=== PATIENT | male | born 1970 | race Caucasian/White ===

== ENCOUNTER 2018-09-22 14:29 | Emergency (ER) | payer BC ==
--- OUTSIDE RECORDS SUMMARY | 2018-09-22 14:43 | XMS REPORT | Continuity of Care Document ---
:1970 External Reference #:[id number] Author Name Bria Valles Care Team Providers Name Role Phone Gato Paulino NP Primary Care Physician Unavailable Payers Date Identification Numbers Payment Provider Subscriber Policy Number: [id number] BS Corbin Jose Marquez PayID: [id number] [address] [address] [place] [address] Advance Directives Description No Information Available Problems Description No Information Family History Date Family Member(s) Observation Comments Father Coronary Artery Disease (CAD) Father [place] x6 Mother Heart Murmur Siblings 3 2 brothers, healthy 1 brother, at 8 yrs-leukemia Social History Type Date Description Comments Sex Unknown Marital Status Lives With Lives With Family Occupation Manager Of Compliance Tobacco Use Start: Unknown End: Former Cigarette Smoker Unknown Cigarette Use Pack Years - 20 Smoking Status Reviewed: 08/24/18 Former Cigarette Smoker ETOH Use Denies alcohol use Tobacco Use Start: Unknown End: Patient is a former Quit 05/2015. Unknown smoker Smoked 1/2 ppd for 20 years Recreational Drug Use Denies Drug Use Exercise Type/Frequency Exercises regularly Allergies, Adverse Reactions, Alerts Date Description Reaction Status Severity Comments 08/19/2015 NKDA Active 08/20/2015 Tree Nuts Active Medications Medication Date Status Form Strength Qnty SIG Indications Ordering Provider Aspirin 0000/ Active 81mg 1 tablet Unknown 0000 daily Atorvastatin 00/00/ Active Tablets 80mg 30tabs 1 tablet Qutaybeh Calcium 0000 daily at S. bedtime Angélica Galeana Colace 00/00/ Active 100mg 1 tablet Unknown 0000 twice a day prn Nitrostat 00/00/ Active Tablets 0.4mg 30tabs place 1 Qutaybeh 0000 Sub tablet S. under the Maghaydah, tongue M.D. every 5 minutes as needed for chest pain Ranitidine HCL 00/ Active 150mg 1 tablet Unknown 0000 prn for heartburn Benadryl 00/ Active Tablets 25mg 1 tablet by Unknown Allergy 0000 mouth as needed Tylenol Extra / Active Tablets 500mg 2 by mouth Unknown Strength 0000 as needed Isosorbide / Active Tablets 30mg 90tabs take one Qutaybeh Mononitrate ER 0000 ER 24HR tablet by S. mouth once Maghaydah, daily M.D. Clopidogrel / Active Tablets 75mg 90tabs take one Qutaybeh Bisulfate 0000 tablet by S. mouth once Maghaydah, daily M.D. Metoprolol / Active Tablets 25mg 90tabs 1/2 tab by Qutaybeh Succinate ER 0000 ER 24HR mouth daily S. Lissett, M.DRena Lisinopril / Hx Tablets 2.5mg 30tabs 1 tablet Qutaybeh 0000 - daily S. Lissett2018 M.DRena Zantac 75 / Hx Tablets 75mg 1 by mouth Unknown 0000 - as needed 2015 Immunizations Description No Information Available Vital Signs Date Vital Result Comment 08/24/2018 9:09am Height 72 inches 6'0" Weight 274.00 lb W/shoes/clothes Heart Rate 72 /min Radial Pulse BP Systolic Sitting 118 mmHg Lue Lg cuff BP Diastolic Sitting 60 mmHg Lue Lg cuff BP Systolic Standing 122 mmHg Lue Lg cuff BP Diastolic Standing 70 mmHg Lue Lg cuff BMI (Body Mass Index) 37.2 kg/m2 Ejection Fraction 50-55% Echo 08/05/2015 08/07/2018 9:24am Height 72 inches 6'0" Weight 272.00 lb Heart Rate 68 /min BP Systolic 115 mmHg BP Diastolic 74 mmHg Body Temperature 97.9 F O2 % BldC Oximetry 98 % BMI (Body Mass Index) 36.9 kg/m2 02/10/2018 9:22am Height 71 inches 5'11" Weight 269.00 lb w/ shoes Heart Rate 70 /min BP Systolic Sitting 100 mmHg lue large cuff BP Diastolic Sitting 64 mmHg lue large cuff BMI (Body Mass Index) 37.5 kg/m2 Ejection Fraction 50-55% echo 08/05/15 08/08/2017 8:07am Height 71 inches 5'11" Weight 255.12 lb Heart Rate 70 /min BP Systolic 110 mmHg L/Arm Reg Cuff BP Diastolic 80 mmHg L/Arm Reg Cuff BMI (Body Mass Index) 35.6 kg/m2 Ejection Fraction 50-55% Echocardiogram 08/05/2015 10/19/2016 1:32pm Height 71 inches 5'11" Weight 243.25 lb with shoes Heart Rate 70 /min BP Systolic Sitting 120 mmHg LA lrg cuff BP Diastolic Sitting 82 mmHg LA lrg cuff BMI (Body Mass Index) 33.9 kg/m2 Ejection Fraction 50% - 55% echo 08/05/15 03/26/2016 2:55pm Height 71 inches 5'11" Weight 242.00 lb with shoes Heart Rate 76 /min BP Systolic Sitting 104 mmHg LA lrg cuff BP Diastolic Sitting 72 mmHg LA lrg cuff BMI (Body Mass Index) 33.7 kg/m2 Ejection Fraction 50% - 55% echo 08/05/15 08/21/2015 2:27pm Height 71 inches 5'11" Weight 243.00 lb w/boots Heart Rate 76 /min BP Systolic Sitting 100 mmHg LA lg cuff BP Diastolic Sitting 62 mmHg LA lg cuff BMI (Body Mass Index) 33.9 kg/m2 Ejection Fraction 50-55 echo 08/05/15 08/20/2015 9:27am Height 71 inches 5'11" Weight 238.50 lb Heart Rate 84 /min BP Systolic Sitting 110 mmHg BP Diastolic Sitting 64 mmHg Respiratory Rate 18 /min Body Temperature 97.2 F Pain Level 0 O2 % BldC Oximetry 97 % BMI (Body Mass Index) 33.3 kg/m2 Results Test Date Facility Test Result H/L Range Note Lipid Profile 08/10/2018 [facility] Triglycerides 61 mg/dL 1 (Trig/Chol/HDL) [address] [place] [address] [phone] Cholesterol 110 mg/dL 2 HDL Cholesterol 36.7 mg/dL 3 LDL Cholesterol 61 mg/dL 4 Comp Metabolic Panel 08/10/2018 [facility] Sodium 138 mmol/L N 135-[address] [place] [address] [phone] Potassium 4.2 mmol/L N 3.5-5.0 Chloride 106 mmol/L N 101-111 Co2 Carbon Dioxide 25 mmol/L N 22-32 Anion Gap 7 mmol/L N 2-11 Glucose 104 mg/dL High 70-100 Blood Urea Nitrogen 17 mg/dL N 6-24 Creatinine 0.87 mg/dL N 0.67-1.17 BUN/Creatinine Ratio 19.5 N 8-20 Calcium 8.9 mg/dL N 8.6-10.3 Total Protein 6.4 g/dL N 6.4-8.9 Albumin 4.1 g/dL N 3.2-5.2 Globulin 2.3 g/dL N 2-4 Albumin/Globulin Ratio 1.8 N 1-3 Total Bilirubin 0.50 mg/dL N 0.2-1.0 Alkaline Phosphatase 61 U/L N 34-104 Alt 15 U/L N 7-52 Ast 16 U/L N 13-39 Egfr Non- 94.5 >60 Egfr 114.3 >60 5 Laboratory test 08/10/2018 [facility] TSH (Thyroid 1.04 mcIU/mL N 0.34-5.60 [address] Stim Horm) [place] [address] [phone] Hemoglobin A1c (Glyco HGB) 6.1 % High 4.0-5.6 7 CBC Auto Diff 08/10/2018 [facility] White Blood 8.2 10^3/uL N 3.5-10.[address] [place] [address] [phone] Red Blood Count 5.29 10^6/uL N 4.18-5.48 Hemoglobin 15.0 g/dL N 14.0-18.0 Hematocrit 45 % N 36-46 Mean Corpuscular Volume 84 fL N 80-94 Mean Corpuscular Hemoglobin 28 pg N 27-31 Mean Corpuscular HGB Conc 34 g/dL N 31-36 Red Cell Distribution Width 14 % N 10.5-15 Platelet Count 282 10^3/uL N 150-450 Mean Platelet Volume 7.5 fL N 7.4-10.4 Abs Neutrophils 5.7 10^3/uL N 1.5-7.7 Abs Lymphocytes 1.6 10^3/uL N 1.0-4.8 Abs Monocytes 0.7 10^3/uL N 0-0.8 Abs Eosinophils 0.1 10^3/uL N 0-0.6 Abs Basophils 0 10^3/uL N 0-0.2 Abs Nucleated RBC 0 10^3/uL Granulocyte % 70.4 % Lymphocyte % 19.2 % Monocyte % 8.4 % Eosinophil % 1.7 % Basophil % 0.3 % Nucleated Red Blood Cells % 0 Lipid Panel - 07/16/2017 [facility] Creatine 365 U/L High 10- 223 [address] Kinase(CK) [place] [address] [phone] Comp Metabolic 07/16/2017 [facility] Sodium 138 N 133-[address] mmol/[place] [address] [phone] Potassium 4.2 mmol/L N 3.5-5.0 Chloride 106 mmol/L N 101-111 Co2 Carbon Dioxide 25 mmol/L N 22-32 Anion Gap 7 mmol/L N 2-11 Glucose 109 mg/dL High 70-100 Blood Urea Nitrogen 15 mg/dL N 6-24 Creatinine 0.88 mg/dL N 0.67-1.17 BUN/Creatinine Ratio 17.0 N 8-20 Calcium 9.3 mg/dL N 8.6-10.3 Total Protein 6.6 g/dL N 6.4-8.9 Albumin 4.1 g/dL N 3.2-5.2 Globulin 2.5 g/dL N 2-4 Albumin/Globulin Ratio 1.6 N 1-3 Total Bilirubin 0.60 mg/dL N 0.2-1.0 Alkaline Phosphatase 56 U/L N 34-104 Alt 14 U/L N 7-52 Ast 19 U/L N 13-39 Egfr Non- 93.6 >60 Egfr 120.4 >60 9 Lipid Profile 07/16/2017 [facility] Triglycerides 46 mg/dL 10 (Trig/Chol/HDL) [address] [place] [address] [phone] Cholesterol 113 mg/dL 11 HDL Cholesterol 35.1 mg/dL 12 LDL Cholesterol 69 mg/dL 13 Laboratory test finding 08/21/2016 [facility] Alt 17 U/L N 7- [address] [place] [address] [phone] Ast 17 U/L N 13-39 Lipid Profile 08/21/2016 [facility] Triglycerides 42 mg/dL N 14 (Trig/Chol/HDL) [address] [place] [address] [phone] Cholesterol 124 mg/dL N 15 HDL Cholesterol 37.5 mg/dL N 16 LDL Cholesterol 78 mg/dL N 17 Comp Metabolic Panel 08/21/2016 [facility] Sodium 136 mmol/L N 133-[address] [place] [address] [phone] Potassium 4.3 mmol/L N 3.5-5.0 Chloride 105 mmol/L N 101-111 Co2 Carbon Dioxide 25 mmol/L N 22-32 Anion Gap 6 mmol/L N 2-11 Glucose 101 mg/dL High 70-100 Blood Urea Nitrogen 21 mg/dL N 6-24 Creatinine 0.89 mg/dL N 0.67-1.17 BUN/Creatinine Ratio 23.6 High 8-20 Calcium 9.0 mg/dL N 8.6-10.3 Total Protein 6.5 g/dL N 6.4-8.9 Albumin 4.1 g/dL N 3.2-5.2 Globulin 2.4 g/dL N 2-4 Albumin/Globulin Ratio 1.7 N 1-3 Total Bilirubin 0.60 mg/dL N 0.2-1.0 Alkaline Phosphatase 57 U/L N 34-104 Egfr Non- 92.9 N >60 Egfr 119.4 N >60 18 Lipid Panel - 08/21/2016 [facility] Creatine 172 U/L N 10-223 [address] Kinase(CK) [place] [address] [phone] 1 Desirable: <150 Borderline High: 150-199 High: 200-499 Very High: >500 2 Desirable: <200 Borderline High: 200-239 High: >239 3 Low: <40 Desirable: 40-60 High: >60 4 Desirable: <100 Near Optimal: 100-129 Borderline High: 130-159 High: 160-189 Very High: >189 5 Because ethnic data is not always readily available, this report includes an eGFR for both -Americans and non- Americans. The National Kidney Disease Education Program (NKDEP) does not endorse the use of the MDRD equation for patients that are not between the ages of 18 and 70, are , have extremes of body size, muscle mass, or nutritional status, or are non- or non-. According to the National Kidney Foundation, irrespective of diagnosis, the stage of the disease is based on the level of kidney function: Stage Description GFR(mL/min/1.73 m(2)) 1 Kidney damage with normal or decreased GFR 90 2 Kidney damage with mild decrease in GFR 60-89 3 Moderate decrease in GFR 30-59 4 Severe decrease in GFR 15-29 5 Kidney failure <15 (or dialysis) 6 FASTING 10 HOUR Copy Result to: ORION JUAN ([id number]) 7 Therapeutic target for the treatment of diabetes mellitus patients is <7% HBA1C, and in selective patients <6.0%. Please refer to [place] [employer] diabetic care guidelines for further information. 8 fasting before next ov 9 Because ethnic data is not always readily available, this report includes an eGFR for both -Americans and non- Americans. The National Kidney Disease Education Program (NKDEP) does not endorse the use of the MDRD equation for patients that are not between the ages of 18 and 70, are , have extremes of body size, muscle mass, or nutritional status, or are non- or non-. According to the National Kidney Foundation, irrespective of diagnosis, the stage of the disease is based on the level of kidney function: Stage Description GFR(mL/min/1.73 m(2)) 1 Kidney damage with normal or decreased GFR 90 2 Kidney damage with mild decrease in GFR 60-89 3 Moderate decrease in GFR 30-59 4 Severe decrease in GFR 15-29 5 Kidney failure <15 (or dialysis) 10 Desirable: <150 Borderline High: 150-199 High: 200-499 Very High: >500 11 Desirable: <200 Borderline High: 200-239 High: >239 12 Low: <40 Desirable: 40-60 High: >60 13 Desirable: <100 Near Optimal: 100-129 Borderline High: 130-159 High: 160-189 Very High: >189 14 Desirable <150 Borderline high 150-199 High 200-499 Very High >500 15 Desirable <200 Borderline high 200-239 High >239 16 Low <40 Desirable: 40-60 High: >60 17 Desirable: <100 mg/dL Near Optimal: 100-129 mg/dL Borderline High: 130-159 mg/dL High: 160-189 mg/dL Very High: >189 mg/dL 18 Because ethnic data is not always readily available, this report includes an eGFR for both -Americans and non- Americans. The National Kidney Disease Education Program (NKDEP) does not endorse the use of the MDRD equation for patients that are not between the ages of 18 and 70, are , have extremes of body size, muscle mass, or nutritional status, or are non- or non-. According to the National Kidney Foundation, irrespective of diagnosis, the stage of the disease is based on the level of kidney function: Stage Description GFR(mL/min/1.73 m(2)) 1 Kidney damage with normal or decreased GFR 90 2 Kidney damage with mild decrease in GFR 60-89 3 Moderate decrease in GFR 30-59 4 Severe decrease in GFR 15-29 5 Kidney failure <15 (or dialysis) 19 FASTING 8 HOUR fasting Procedures Date Code Description Status 08/24/2018 21442 EKG Tracing & Interpretation Completed 02/10/2018 90861 EKG Tracing & Interpretation Completed 08/08/2017 18676 EKG Tracing & Interpretation Completed 10/19/2016 68141 EKG Tracing & Interpretation Completed 03/26/2016 79497 EKG Tracing & Interpretation Completed 08/21/2015 75437 EKG Tracing & Interpretation Completed 08/06/2015 44542 Left Heart Cath. 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 I25.10 Athscl heart Angélica Galeana disease of barrow coronary artery w/o ang pctrs I10 Essential (primary) hypertension E66.9 Obesity, unspecified E78.4 Other hyperlipidemia R94.31 Abnormal electrocardiogram [ECG] [EKG] Office Visit 08/08/2017 8:20a [facility] Qutaybeh S. I25.10 Gerard Galeana M.D. disease of barrow coronary artery w/o ang pctrs I10 Essential (primary) hypertension E78.4 Other hyperlipidemia E66.9 Obesity, unspecified R94.31 Abnormal electrocardiogram [ECG] [EKG] I25.2 Old myocardial infarction Office Visit 10/19/2016 2:00p [facility] Qutaybeh S. I25.10 Gerard heart Angélica Galeana disease of b[place] coronary artery w/o ang pctrs I10 Essential (primary) hypertension E78.4 Other hyperlipidemia E66.9 Obesity, unspecified R94.31 Abnormal electrocardiogram [ECG] [EKG] Office Visit 03/26/2016 3:20p [facility]beh S. I25.10 [facility] Ang[facility]lica Galeana disease of b[place] coronary artery w/o ang pctrs E78.4 Other hyperlipidemia I24.9 Acute ischemic heart disease, unspecified I10 Essential (primary) hypertension R94.31 Abnormal electrocardiogram [ECG] [EKG] Office Visit 08/21/2015 2:40p [facility] Qutaybeh S. I25.10 G[facility]ad heart Angélica Galeana disease of barrow coronary artery w/o ang pctrs E78.4 Other hyperlipidemia R94.31 Abnormal electrocardiogram [ECG] [EKG] I10 Essential (primary) hypertension Office Visit 08/20/2015 [facility] Raymond Paulino NP I24.9 Acute ischemic 9:40a Medicine heart disease, unspecified Office Visit 08/06/2015 [facility] Qutaybeh S. I25.10 [facility] heart 4:17p Magamanda, disease of [place] M.D. coronary artery w/o ang pctrs Office Visit 08/06/2015 [facility] R07.9 Chest pain, 9:04a Assoc,steve Gee M.D. unspecified Hospitalists Z87.901 Personal history of nicotine dependence Office Visit 08/05/2015 9:03a [facility] R07.9 Chest pain, Assoc,steve Gee M.D. unspecified Hospitalists Z82.891 Personal history of nicotine dependence Office Visit 08/05/2015 3:33p [facility] Mechelle Ortega R07.9 Chest pain, Cardiology Angélica Galeana unspecified R79.89 Other specified abnormal findings of blood chemistry R94.31 Abnormal electrocardiogram [ECG] [EKG] Z82.49 Family hx of ischem heart dis and oth dis of the circ sys Plan of Treatment Future Appointment(s):10/31/2018 9:00 am - Mechelle Galeana M.D. at [facility]08/24/2018 - Ijeoma Walters N.P.I10 Essential (primary) hypertensionFollow up:QSM as scheduled.Recommendations:STOP Lisinopril DECREASE Toprol to 1/2 tab at night. Take BP 1-2x daily. We will call you in 2-3 weeks to see how BP is.I25.2 Old myocardial twhereuwwhD33.10 Atherosclerotic heart disease of [place] coronary artery withR42 Dizziness and giddiness
[2018-09-22] MEDS ORDERED: Lidocaine 1%* 5 ML VIAL INJ ONE (14:51)
--- NOTE | 2018-09-22 14:52 | ED ---
Laceration/Wound HPI - HPI Summary HPI Summary: 48-year-old male presents with a laceration to the right middle finger. He states that he got caught in a door when it was slammed. He has limited range of motion his right middle finger. He is right-handed. He is on blood thinners due to previous heart attack. He believes his tetanus was last year. has history of prediabetes. also hurt the right index finger. no other injury. - History of Current Complaint Stated Complaint: SMASHED RIGHT HAND IN A CAR DOOR PER PT Time Seen by Provider: 09/22/18 14:48 Pain Intensity: 10 - Additional Pertinent History Primary Care Physician: [id number] - Allergy/Home Medications Allergies/Adverse Reactions: Allergies Allergy/AdvReac Type Severity Reaction Status Date / Time Tree Nuts Allergy Severe Swelling Verified 09/22/18 14:36 Peanuts Allergy Intermediate Itching Uncoded 04/10/12 13:10 Home Medications: Home Medications Atorvastatin* [Lipitor*] 80 mg PO BEDTIME 09/22/18 [History Confirmed 09/22/18] Clopidogrel TAB* [Plavix TAB*] 75 mg PO DAILY 09/22/18 [History Confirmed ] Isosorbide Mononitrate ER TAB* [Imdur ER TAB*] 30 mg PO DAILY 09/22/18 [History Confirmed 09/22/18] Lisinopril TAB* [Prinivil TAB*] 2.5 mg PO DAILY 09/22/18 [History Confirmed 08/08] Metoprolol Succinate XL TAB* [Toprol XL TAB*] 25 mg PO DAILY 09/22/18 [History Confirmed 09/22/18] PMH/Surg Hx/FS Hx/Imm Hx Endocrine/Hematology History: Reports: Hx Anticoagulant Therapy Denies: Hx Diabetes, Hx Thyroid Disease Cardiovascular History: Reports: Hx Coronary Artery Disease Denies: Hx Hypercholesterolemia, Hx Hypertension, Other Cardiovascular Problems/Disorders Respiratory History: Denies: Hx Asthma, Hx Chronic Obstructive Pulmonary Disease (COPD), Other Respiratory Problems/Disorders GI History: Denies: Hx Ulcer Musculoskeletal History: Denies: Hx Arthritis, Hx Osteoporosis - Surgical History Surgery Procedure, Year, and Place: Left shoulder rotator cuff repair Hx Anesthesia Reactions: No Infectious Disease History: No Infectious Disease History: Denies: Hx Hepatitis, Hx Human Immunodeficiency Virus (HIV), Traveled Outside the [place] in Last 30 Days - Family History Known Family History: Positive: Non-Contributory - Social History Alcohol Use: Rare Substance Use Type: Reports: None Hx Tobacco Use: Yes Smoking Status (MU): Former Smoker Type: Cigarettes Length of Time of Smoking/Using Tobacco: 20 years Have You Smoked in the Last Year: Yes Review of Systems Negative: Fever Negative: Chest Pain Negative: Shortness Of Breath Positive: Other - right middle finger laceration All Other Systems Reviewed And Are Negative: Yes Physical Exam Triage Information Reviewed: Yes Vital Signs On Initial Exam: Initial Vitals Temp Pulse Resp BP Pulse Ox 98.1 F 71 16 121/101 96 09/22/18 14:32 09/22/18 14:32 09/22/18 14:32 09/22/18 14:32 09/22/18 14:32 Vital Signs Reviewed: Yes Appearance: Positive: Well-Appearing Skin: Positive: Warm, Dry, Other - 2cm by 1/2cm laceration at distal phalanx of right middle finger Head/Face: Positive: Normal Head/Face Inspection Eyes: Positive: Normal, Conjunctiva Clear ENT: Positive: Pharynx normal Respiratory/Lung Sounds: Positive: Clear to Auscultation, Breath Sounds Present Cardiovascular: Positive: Normal, RRR Musculoskeletal: Positive: Limited @ - right middle finger, Other - capillary refill<2 secs, tenderness right index finger Neurological: Positive: Normal Psychiatric: Positive: Normal Procedures - Laceration/Wound Repair 1 Location: Other - right middle finger Description: Linear Anesthesia: Local, 1.0% Length, Depth and Shape: 2cm by 1/2cm Irrigated w/ Saline (ccs): 1,000 Closure: Single Layer Suture Type: Prolene Number of Sutures: 4 Sterile Dressing Applied?: No - coband and telfa Diagnostics - Vital Signs Vital Signs Temp Pulse Resp BP Pulse Ox 09/22/18 14:32 98.1 F 71 16 121/101 96 - Laboratory Lab Statement: Any lab studies that have been ordered have been reviewed, and results considered in the medical decision making process. - Radiology fingers Radiology Interpretation Completed By: Radiologist Summary of Radiographic Findings: no acute findings Laceration Repair Course/Dx - Course Course Of Treatment: 48-year-old male presents with a laceration to the right middle finger. He states that he got caught in a door when it was slammed. He is right-handed. He is on blood thinners due to previous heart attack. He believes his tetanus was last year. also hurt the right index finger. no other injury. on exam has 2cm laceration to right middle finger. cleaned area and placed 4 sutures. xray shows no fracture. told may need a pressure dressing on the area to keep from bleeding. will have place on keflex as wound is contaminant. patient understand and agrees with plan. - Differential Dx Differental Diagnoses: Abrasion, Avulsion, Laceration - Clinical Impression Provider Diagnoses: Laceration of right middle finger Discharge - Sign-Out/Discharge Documenting (check all that apply): Patient Departure Patient Received Moderate/Deep Sedation with Procedure: No - Discharge Plan Condition: Good Disposition: HOME Prescriptions: Cephalexin CAP* [Keflex CAP*] 500 mg PO BID #9 cap Patient Education Materials: Care For Your Stitches (ED) Referrals: Gato Paulino PLANT ETIOLOGIST [Primary Care Provider] - Additional Instructions: Take Tylenol for pain every 6 hours as needed take keflex twice a day for 5 days Keep area clean and dry for 24 hours Return to ED or primary in 8-10 days to have sutures removed Return to ED if develop signs of infection such as fever, spreading redness, or pus. - Billing Disposition and Condition Condition: GOOD Disposition: Home
[2018-09-22] MEDS ORDERED: Cephalexin CAP* 500 MG PO ONE (15:48)
[2018-09-22 16:23] VITALS: BP 132/93
== END 2018-09-22 16:21 | disposition home or self-care (01) ==
LOC: ED 14:29
DX: S61.212A Laceration without foreign body of right middle finger without damage to nail, initial encounter (principal); I25.10 Atherosclerotic heart disease of native coronary artery without angina pectoris; Z87.891 Personal history of nicotine dependence; Z79.899 Other long term (current) drug therapy; Z79.01 Long term (current) use of anticoagulants
CPT/HCPCS: 12001; 73140; 99282; A9270-GY